=== PATIENT | female | born 1950 | race Caucasian/White ===

== ENCOUNTER 2017-04-02 08:48 | Emergency (ER) | payer OTHER ==
[~2017-04-02] VITALS: Ht 177.8 cm; Wt 90.7 kg
[2017-04-02 09:26] VITALS: BP 182/86
[2017-04-02] MEDS ORDERED: HYDROmorphone HCL 2 MG/ML VL IM ONE (10:00)
[2017-04-02] MEDS ORDERED: cloNIDine HCL 0.1 MG TAB PO ONE (10:00)
[2017-04-02] MEDS ORDERED: METHOCARBAMOL 500 MG TAB PO ONE (10:00)
[2017-04-02] MEDS ORDERED: ONDANSETRON HCL 4 MG/2 ML VIAL IM ONE (10:00)
== END 2017-04-02 11:15 | disposition home or self-care (01) ==
LOC: ER 08:48
DX: G89.29 Other chronic pain (principal); M54.41 Lumbago with sciatica, right side; I10 Essential (primary) hypertension
CPT/HCPCS: 96372; 99284; J1170; J2405